=== PATIENT | male | born 1970 | race Caucasian/White ===

== ENCOUNTER 2018-04-28 08:26 | Emergency (ER) | payer MEDICAID ==
--- NOTE | 2018-04-28 08:42 | Emergency Department Record ---
History of Present Illness - General Chief Complaint: Suture removal Stated Complaint: SUTURE REMOVAL Time Seen by Provider: 04/28/18 08:28 Source: Patient Mode of arrival: Ambulatory Limitations: No limitations - History of Present Illness Initial Comments: 48 yo male presents for suture removal and wound check after an injury 10 days ago. No complaints since the injury. No fevers, redness or drainage. MD Complaint: Suture/staple removal, Wound re-check -: Days(s) (10) Initial Visit For: Laceration Returns Today for: Staple/stitch removal, Wound recheck Symptoms Since Prior Visit: No new symptoms Associated Symptoms: None Treatments Prior to Arrival: Other - Related Data Previous Rx's Medication Instructions Recorded Amoxicillin/Potassium Clav 1 tab PO BID #14 tab 04/18/18 [Augmentin 875-125 Tablet] Allergies Allergy/AdvReac Type Severity Reaction Status Date / Time oxycodone Allergy ALTERED Verified 04/18/18 17:32 MENTAL STATUS Review of Systems Constitutional: Denies: Chills, Fever Eyes: Denies: Eye discharge, Vision change ENT: Denies: Congestion, Throat pain Respiratory: Denies: Cough Cardiovascular: Denies: Chest pain Endocrine: Denies: Fatigue Gastrointestinal: Denies: Diarrhea, Nausea, Vomiting Genitourinary: Denies: Dysuria, Hematuria Musculoskeletal: Denies: Arthralgia, Myalgia Skin: Reports: Other. Denies: Bruising, Change in color Neurological: Denies: Headache Psychiatric: Denies: Anxiety Hematological/Lymphatic: Denies: Easy bleeding, Easy bruising Past Medical History - SOCIAL HISTORY Smoking Status: Current every day smoker Drug Use: None - RESPIRATORY Hx Respiratory Disorders: Yes Hx Bronchitis: Yes (2 weeks ago bronchitis-80% better) Hx Sleep Apnea: Yes (study done) Hx of CPAP: (dont have one) Comment:: has sinus drainage - CARDIOVASCULAR Hx Cardio Disorders: Yes Hx Hypertension: Yes (140/90 with meds) Hx Irregular Heartbeat: Yes (slight murmur) Comment:: painful right knee - NEURO Hx Neuro Disorders: No - GI Hx GI Disorders: Yes Hx Reflux: Yes Hx Hiatal Hernia: Yes Comment:: "ruptured diaphram" "part of my stomach above diaphram" - Hx Genitourinary Disorders: No - ENDOCRINE Hx Endocrine Disorders: No Hx Diabetes: No Hx Thyroid Disease: No - MUSCULOSKELETAL Hx Musculoskeletal Disorders: Yes Hx Arthritis: Yes (knees ,neck) Hx Osteoporosis: Yes - PSYCH Hx Psych Problems: No - HEMATOLOGY/ONCOLOGY Hx Hematology/Oncology Disorders: No Family Medical History Hx Cancer: Father, Grandparents *Cancer Comment: mat grandpa Hx Heart Disease: Father, Mother, Grandparents *Heart Comment: pat grandpa Hx HTN: Father, Grandparents Hx Resp Disorders: Father *Resp Comment: sleep apnea Hx Stroke: Mother Physical Exam - General General Appearance: Alert, Oriented x3, Cooperative, No acute distress Limitations: No limitations - Head Head exam: Other (healing scalp laceration without pus, redness or concerns) Head exam detail: Laceration - Eye Eye exam: Normal appearance. negative: Conjunctival injection - ENT ENT exam: negative: Normal exam Ear exam: negative: Normal external inspection Nasal Exam: negative: Normal inspection Mouth exam: negative: Normal external inspection - Neck Neck exam: Normal inspection - Extremities Extremities exam: Normal inspection - Neurological Neurological exam: Alert, Oriented X3 - Psychiatric Psychiatric exam: Normal affect, Normal mood - Skin Skin exam: Dry, Intact, Normal color, Warm Course - Reevaluation(s) Reevaluation #1: sutures removed without difficulty 04/28/18 08:44 Disposition Disposition: Discharge Clinical Impression: Visit for suture removal Disposition: Home, Self-Care Condition: (1) Good Instructions: Stitches Removal (ED) Additional Instructions: Return if you have any ongoing concerns about your healing of the laceration Forms: Patient Portal Access Time of Disposition: 08:42 Quality - Quality Measures Quality Measures: N/A - Blood Pressure Screening Does Patient Have Any of the Following: Active Dx of HTN Blood Pressure Classification: Pre-Hypertensive BP Reading Systolic Measurement: 135 Diastolic Measurement: 79 Screening for High Blood Pressure: Patient Exclusion, Hx of HTN [G9744]
== END 2018-04-28 08:50 | disposition home or self-care (01) ==
LOC: ER 08:26
DX: Z48.02 Encounter for removal of sutures (principal)

== ENCOUNTER 2019-02-01 11:30 | Emergency (ER) | payer MEDICAID ==
[2019-02-01] MEDS ORDERED: PROPARACAINE HCL OPTH 15ML BTL OPTH ONE (11:40)
[2019-02-01] MEDS ORDERED: IBUPROFEN 600 MG TABLET PO ONE (12:58)
--- NOTE | 2019-02-01 13:02 | Emergency Department Record ---
History of Present Illness - General Chief complaint: Eye Problem Stated complaint: LEFT EYE REDNESS Time Seen by Provider: 02/01/19 12:34 Source: Patient Mode of Arrival: Ambulatory Limitations: No limitations - History of Present Illness Initial comments: pt got sawdust in his eye a few days ago. it has contd to hurt and now has swelling ,redness and discharge. it feels similar to when he had a blocked tear duct. chief complaint: Eye pain, Eye redness, Foreign body Onset/Timin -: Days(s) Location: Left eye If Injury: None Eye Symptoms: Blurry vision, Decreased vision, Discharge, Foreign body sensation, Itching, Pain, Redness Severity: Mild Severity scale (1-10): 3 If Pain, Quality: Aching Consistency: Constant Associated Symptoms: None Treatments Prior to Arrival: None - Related Data Hx Tetanus Toxoid Vaccination: Yes Year of Tetanus Vaccination: 2013 Previous Rx's Medication Instructions Recorded Gentamicin Sulfate 1 drop AFFEYE Q6HR #1 ml 02/01/19 Ibuprofen [Motrin 600Mg] 600 mg PO Q6H #20 tablet 02/01/19 Allergies Allergy/AdvReac Type Severity Reaction Status Date / Time oxycodone Allergy ALTERED Verified 02/01/19 11:38 MENTAL STATUS Travel Screening - Travel/Exposure Within Last 30 Days Have you traveled within the last 30 days?: No Review of Systems Reviewed: No additional complaints except as noted below Constitutional: Reports: As per HPI. Denies: Chills, Fever, Malaise, Night sweats, Weakness, Weight change Eyes: Reports: As per HPI, Eye pain. Denies: Eye discharge, Photophobia, Vision change ENT: Reports: As per HPI. Denies: Congestion, Dental pain, Ear pain, Epistaxis, Hearing loss, Throat pain Respiratory: Reports: As per HPI. Denies: Cough, Dyspnea, Hemoptysis, Stridor, Wheezes Cardiovascular: Reports: As per HPI. Denies: Arrhythmia, Chest pain, Dyspnea on exertion, Edema, Murmurs, Orthopnea, Palpitations, Paroxysmal nocturnal dyspnea, Rheumatic Fever, Syncope Endocrine: Reports: As per HPI. Denies: Fatigue, Heat or cold intolerance, Polydipsia, Polyuria Gastrointestinal: Reports: As per HPI. Denies: Abdominal pain, Constipation, Diarrhea, Hematemesis, Hematochezia, Melena, Nausea, Vomiting Genitourinary: Reports: As per HPI. Denies: Dysuria, Frequency, Hematuria, Incontinence, Retention, Testicular pain, Testicular mass, Urgency Musculoskeletal: Reports: As per HPI. Denies: Arthralgia, Back pain, Gout, Joint swelling, Myalgia, Neck pain Skin: Reports: As per HPI. Denies: Bruising, Change in color, Change in hair/nails, Lesions, Pruritus, Rash Neurological: Reports: As per HPI. Denies: Abnormal gait, Confusion, Headache, Numbness, Paresthesias, Seizure, Tingling, Tremors, Vertigo, Weakness Psychiatric: Reports: As per HPI. Denies: Anxiety, Auditory hallucinations, Depression, Homicidal thoughts, Suicidal thoughts, Visual hallucinations Hematological/Lymphatic: Reports: As per HPI. Denies: Anemia, Blood Clots, Easy bleeding, Easy bruising, Swollen glands Past Medical History - SOCIAL HISTORY Smoking Status: Current every day smoker Alcohol Use: None Drug Use: None - RESPIRATORY Hx Respiratory Disorders: Yes Hx Bronchitis: Yes Hx Sleep Apnea: Yes - CARDIOVASCULAR Hx Cardio Disorders: Yes Hx Hypertension: Yes Hx Irregular Heartbeat: Yes (slight murmur) Comment:: painful right knee - NEURO Hx Neuro Disorders: No - GI Hx GI Disorders: Yes Hx Reflux: Yes Hx Hiatal Hernia: Yes Comment:: "ruptured diaphram" "part of my stomach above diaphram" - Hx Genitourinary Disorders: No - ENDOCRINE Hx Endocrine Disorders: No Hx Diabetes: No Hx Thyroid Disease: No - MUSCULOSKELETAL Hx Musculoskeletal Disorders: Yes Hx Arthritis: Yes (knees ,neck) Hx Osteoporosis: Yes - PSYCH Hx Psych Problems: No - HEMATOLOGY/ONCOLOGY Hx Hematology/Oncology Disorders: No Family Medical History Any Significant Family History?: Yes Hx Cancer: Father, Grandparents *Cancer Comment: mat grandpa Hx Heart Disease: Father, Mother, Grandparents *Heart Comment: pat grandpa Hx HTN: Father, Grandparents Hx Resp Disorders: Father *Resp Comment: sleep apnea Hx Stroke: Mother Physical Exam - General General Appearance: Alert, Oriented x3, Cooperative, Mild distress - Head Head exam: Normal inspection - Eye Eye exam: Normal appearance, PERRL, Conjunctival injection, EOMI, Periorbital swelling, Other (upper lid is erythematous and has swelling) Pupils: Normal accommodation, Other (no flourscein uptake, lids everted) - ENT ENT exam: Normal exam, Mucous membranes moist, Normal external ear exam, Normal orophraynx Ear exam: Normal external inspection. negative: External canal tenderness Nasal Exam: Normal inspection. negative: Discharge, Sinus tenderness Mouth exam: Normal external inspection, Tongue normal Teeth exam: Normal inspection. negative: Dental caries Throat exam: Normal inspection. negative: Tonsillar erythema, Tonsillar exudate - Neck Neck exam: Normal inspection, Full ROM. negative: Tenderness - Respiratory Respiratory exam: Normal lung sounds bilaterally. negative: Respiratory distress - Cardiovascular Cardiovascular Exam: Regular rate, Normal rhythm, Normal heart sounds - GI/Abdominal GI/Abdominal exam: Soft, Normal bowel sounds. negative: Tenderness - Rectal Rectal exam: Deferred - exam: Deferred - Extremities Extremities exam: Normal inspection, Full ROM, Normal capillary refill. negative: Tenderness - Back Back exam: Reports: Normal inspection, Full ROM. Denies: Muscle spasm, Rash noted, Tenderness - Neurological Neurological exam: Alert, Normal gait, Oriented X3, Reflexes normal - Psychiatric Psychiatric exam: Normal affect, Normal mood - Skin Skin exam: Dry, Intact, Normal color, Warm Course Vital Signs 02/01/19 11:34 Temperature 98.0 F Pulse Rate 79 Respiratory 20 Rate Blood Pressure 184/119 Pulse Ox 99 Disposition Disposition: Discharge Clinical Impression: Blocked tear duct Hordeolum Qualifiers: Hordeolum type: internum Laterality: left Eyelid: upper Qualified Code(s): H00.024 - Hordeolum internum left upper eyelid Disposition: Home, Self-Care Condition: (1) Good Instructions: Blocked Tear Duct (ED), Stye (ED) Additional Instructions: follow up with opthamologist this week. return sooner if worse. continue warm soaks Prescriptions: Gentamicin Sulfate 1 drop AFFEYE Q6HR #1 ml Ibuprofen [Motrin 600Mg] 600 mg PO Q6H #20 tablet Quality - Quality Measures Quality Measures: N/A - Blood Pressure Screening Does Patient Have Any of the Following: Active Dx of HTN Blood Pressure Classification: Hypertensive Reading Systolic Measurement: 184 Diastolic Measurement: 119 Screening for High Blood Pressure: Patient Exclusion, Hx of HTN [G9744]
== END 2019-02-01 13:19 | disposition home or self-care (01) ==
LOC: ER 11:30
DX: H00.024 Hordeolum internum left upper eyelid (principal); H04.552 Acquired stenosis of left nasolacrimal duct; I10 Essential (primary) hypertension; F17.210 Nicotine dependence, cigarettes, uncomplicated
CPT/HCPCS: 99282

== ENCOUNTER 2019-05-24 22:09 | Emergency (ER) | payer MEDICAID ==
--- NOTE | 2019-05-24 22:33 | Emergency Department Record ---
History of Present Illness - General Chief Complaint: Laceration(s) Stated Complaint: LAC,RT THUMB Time Seen by Provider: 05/24/19 22:16 Source: Patient Mode of Arrival: Ambulatory Limitations: No limitations - History of Present Illness Initial Commments: 49 yo male presents to ED for evaluation following a laceration to the right thumb with a new hatchet. Patient was handing the weapon to his son who was going to gut a deer with the new knife when the laceration occurred. Patient reports applying bandage to the thumb prior to arrival, but was unable to get his bleeding to stop. Patient denies use of blood thinner medications, reports tetanus is UTD as well. Patient denies loss of flexion/extension of the thumb on examination. Onset/Timin -: Hour(s) Extremity Location: Right: Hand Place: Home Context: Accidental Associated Symptoms: None Treatments Prior to Arrival: Bandage - [place] Coma Scale Eye Response: (4) Open spontaneously Motor Response: (6) Obeys commands Verbal Response: (5) Oriented [place] Total: 15 - Related Data Hx Tetanus Toxoid Vaccination: Yes Year of Tetanus Vaccination: 2013 Previous Rx's Medication Instructions Recorded Gentamicin Sulfate 1 drop AFFEYE Q6HR #1 ml 02/01/19 Ibuprofen [Motrin 600Mg] 600 mg PO Q6H #20 tablet 02/01/19 Cephalexin [Keflex] 500 mg PO QID #27 cap 05/24/19 Allergies Allergy/AdvReac Type Severity Reaction Status Date / Time oxycodone Allergy ALTERED Verified 02/01/19 11:38 MENTAL STATUS Review of Systems Constitutional: Denies: Chills, Fever, Malaise, Night sweats Eyes: Denies: Eye discharge, Eye pain ENT: Denies: Congestion, Ear pain, Epistaxis Respiratory: Denies: Cough, Dyspnea Cardiovascular: Denies: Chest pain, Dyspnea on exertion Endocrine: Denies: Fatigue, Heat or cold intolerance Gastrointestinal: Denies: Abdominal pain, Nausea, Vomiting Genitourinary: Denies: Incontinence, Retention Musculoskeletal: Denies: Arthralgia, Back pain, Gout, Joint swelling Skin: Reports: Other (Thumb laceration). Denies: Bruising, Change in color, Change in hair/nails Neurological: Denies: Abnormal gait, Confusion, Headache, Seizure Psychiatric: Denies: Anxiety Hematological/Lymphatic: Denies: Anemia, Blood Clots, Easy bleeding, Easy bruising Past Medical History - SOCIAL HISTORY Smoking Status: Current every day smoker Drug Use: None - RESPIRATORY Hx Respiratory Disorders: Yes Hx Bronchitis: Yes Hx Sleep Apnea: Yes - CARDIOVASCULAR Hx Cardio Disorders: Yes Hx Hypertension: Yes Hx Irregular Heartbeat: Yes (slight murmur) Comment:: painful right knee - NEURO Hx Neuro Disorders: No - GI Hx GI Disorders: Yes Hx Reflux: Yes Hx Hiatal Hernia: Yes Comment:: "ruptured diaphram" "part of my stomach above diaphram" - Hx Genitourinary Disorders: No - ENDOCRINE Hx Endocrine Disorders: No Hx Diabetes: No Hx Thyroid Disease: No - MUSCULOSKELETAL Hx Musculoskeletal Disorders: Yes Hx Arthritis: Yes (knees ,neck) Hx Osteoporosis: Yes - PSYCH Hx Psych Problems: No - HEMATOLOGY/ONCOLOGY Hx Hematology/Oncology Disorders: No Family Medical History Hx Cancer: Father, Grandparents *Cancer Comment: mat grandpa Hx Heart Disease: Father, Mother, Grandparents *Heart Comment: pat grandpa Hx HTN: Father, Grandparents Hx Resp Disorders: Father *Resp Comment: sleep apnea Hx Stroke: Mother Physical Exam - General General Appearance: Alert, Oriented x3, Cooperative, Mild distress Limitations: No limitations - Head Head exam: Atraumatic, Normocephalic, Normal inspection Head exam detail: negative: Abrasion, Contusion, Humphries's sign, General tenderness, Hematoma, Laceration - Eye Eye exam: Normal appearance. negative: Conjunctival injection, Periorbital swelling, Periorbital tenderness, Scleral icterus - ENT Ear exam: negative: Auricular hematoma, Auricular trauma Nasal Exam: negative: Active bleeding, Discharge, Dried blood, Foreign body Mouth exam: negative: Drooling, Laceration, Muffled voice, Tongue elevation - Neck Neck exam: Normal inspection. negative: Meningismus, Tenderness - Respiratory Respiratory exam: Normal lung sounds bilaterally. negative: Rales, Respiratory distress, Rhonchi, Stridor - Cardiovascular Cardiovascular Exam: Regular rate, Normal rhythm, Normal heart sounds - GI/Abdominal GI/Abdominal exam: Soft. negative: Rebound, Rigid, Tenderness - Rectal Rectal exam: Deferred - exam: Deferred - Extremities Extremities exam: Tenderness, Other (2.0 cm laceration to the palmar aspect of the right thumb overlying the DIP on examination, bleeding is controlled.). negative: Calf tenderness, Pedal edema - Back Back exam: Denies: CVA tenderness (R), CVA tenderness (L) - Neurological Neurological exam: Alert, Normal gait, Oriented X3 - Psychiatric Psychiatric exam: Normal affect, Normal mood - Skin Skin exam: Normal color. negative: Abrasion Type of lesion: negative: abrasion Course Vital Signs 05/24/19 22:18 Temperature 97.6 F Pulse Rate [ 91 H Pulse Ox Probe] Respiratory 20 Rate Blood Pressure 171/117 [Left Arm] Pulse Ox 96 - Reevaluation(s) Reevaluation #1: 05/24/19 22:47 Procedure Note: 2.0 cm laceration to the palmar aspect of the right thumb, bleeding controlled. Wound was cleaned and prepped in sterile fashion, no residual FB identified on examination. Wound was anesthetized with 1.0 mL of 1% Lidocaine without epinephrinewith good anesthesia, and the laceration was repaired with 4-0 Prolene (#3) sutures in interrupted fashion. Patient tolerated the procedure well without complications. Patient's tetanus was UTD. Patient was also started on Keflex prior to discharge given the location of the patient's laceration. Patient and his mother were given wound care instructions and signs/symptoms to return to the ED for as well including: increased swelling, pain, redness, or discharge from the wound. Patient was counseled to return to the ED for suture removal in 10 days. Disposition Disposition: Discharge Clinical Impression: Laceration of thumb, right Qualifiers: Encounter type: initial encounter Damage to nail status: without damage Foreign body presence: without foreign body Qualified Code(s): S61.011A - Laceration without foreign body of right thumb without damage to nail, initial encounter Disposition: Home, Self-Care Condition: (2) Stable Instructions: Care For Your Stitches (ED) Additional Instructions: Return to ED if your symptoms worsen or if you have any concerns. Keflex as directed. Follow-up with your family doctor in 3-5 days as directed. Sutures out in 10 days. Prescriptions: Cephalexin [Keflex] 500 mg PO QID #27 cap Forms: Patient Portal Access Time of Disposition: 22:32 Quality - Quality Measures Quality Measures: N/A - Blood Pressure Screening Does Patient Have Any of the Following: No Blood Pressure Classification: Hypertensive Reading Systolic Measurement: 171 Diastolic Measurement: 117 Screening for High Blood Pressure: < First Hypertensive BP, F/U Documented > [G8950] First Hypertensive Follow-up Interventions: Referral to alternative/primary care provider.
[2019-05-24] MEDS: CEPHALEXIN 500 MG CAPSULE PO STA (22:45)
== END 2019-05-24 23:03 | disposition home or self-care (01) ==
LOC: ER 22:09
DX: S61.011A Laceration without foreign body of right thumb without damage to nail, initial encounter (principal); W27.8XXA Contact with other nonpowered hand tool, initial encounter; Y92.009 Unspecified place in unspecified non-institutional (private) residence as the place of occurrence of the external cause; I10 Essential (primary) hypertension; F17.210 Nicotine dependence, cigarettes, uncomplicated
CPT/HCPCS: 12001; 99283

== ENCOUNTER 2019-07-22 11:32 | Emergency (ER) | payer MEDICAID ==
[2019-07-22] MEDS ORDERED: DEXAMETHASONE SOD PHOSPHATE 10MG/ML VIAL PO ONE (11:53)
--- NOTE | 2019-07-22 11:57 | Emergency Department Record ---
History of Present Illness - General Chief complaint: Flu Like Symptoms Stated complaint: COUGHING/FEVER/CHILLS Time Seen by Provider: 07/22/19 11:53 Source: Patient Mode of Arrival: Ambulatory Limitations: No limitations - History of Present Illness Initial comments: 49 yo male presents with cough, congestion, sinus pressure, and sore throat. The onset was about 5 days ago. No fever. The symptoms started in the nose and have progressed to the chest. He is a minimal casual smoker. No underlying lung disease history. No vomiting, diarrhea, or rash. The discharge is clear at this point. Onset/Timin -: Days(s) Location: Generalized Severity: Moderate Quality: Aching Consistency: Constant Improves with: None Worsens with: None Associated Symptoms: Other - [place] Coma Scale Eye Response: (4) Open spontaneously Motor Response: (6) Obeys commands Verbal Response: (5) Oriented [place] Total: 15 - Related Data Home Medications Medication Instructions Recorded Confirmed Last Taken Atorvastatin Calcium 20 mg PO DAILY 07/22/19 07/22/19 Unknown Previous Rx's Medication Instructions Recorded Benzonatate [Tessalon] 1 cap PO Q8H PRN #16 cap 07/22/19 Allergies Allergy/AdvReac Type Severity Reaction Status Date / Time oxycodone Allergy ALTERED Verified 02/01/19 11:38 MENTAL STATUS Travel Screening - Travel/Exposure Within Last 30 Days Have you traveled within the last 30 days?: No Review of Systems Constitutional: Denies: Chills, Fever, Malaise, Weakness Eyes: Denies: Eye discharge, Vision change ENT: Reports: Congestion, Throat pain. Denies: Dental pain, Ear pain Respiratory: Reports: Cough. Denies: Dyspnea, Hemoptysis, Wheezes Cardiovascular: Denies: Chest pain, Palpitations, Syncope Endocrine: Denies: Fatigue, Polydipsia, Polyuria Gastrointestinal: Denies: Abdominal pain, Diarrhea, Nausea, Vomiting Genitourinary: Denies: Dysuria, Frequency, Hematuria Musculoskeletal: Denies: Arthralgia, Back pain, Myalgia Skin: Denies: Bruising, Change in color, Rash Neurological: Denies: Headache Psychiatric: Denies: Anxiety Hematological/Lymphatic: Denies: Easy bleeding, Easy bruising Past Medical History - SOCIAL HISTORY Smoking Status: Current every day smoker - RESPIRATORY Hx Respiratory Disorders: Yes Hx Bronchitis: Yes Hx Sleep Apnea: Yes - CARDIOVASCULAR Hx Cardio Disorders: Yes Hx Hypertension: Yes Hx Irregular Heartbeat: Yes (slight murmur) Comment:: painful right knee - NEURO Hx Neuro Disorders: No - GI Hx GI Disorders: Yes Hx Reflux: Yes Hx Hiatal Hernia: Yes Comment:: "ruptured diaphram" "part of my stomach above diaphram" - Hx Genitourinary Disorders: No - ENDOCRINE Hx Endocrine Disorders: No Hx Diabetes: No Hx Thyroid Disease: No - MUSCULOSKELETAL Hx Musculoskeletal Disorders: Yes Hx Arthritis: Yes (knees ,neck) Hx Osteoporosis: Yes - PSYCH Hx Psych Problems: No - HEMATOLOGY/ONCOLOGY Hx Hematology/Oncology Disorders: No Family Medical History Any Significant Family History?: Yes Hx Cancer: Father, Grandparents *Cancer Comment: mat grandpa Hx Heart Disease: Father, Mother, Grandparents *Heart Comment: pat grandpa Hx HTN: Father, Grandparents Hx Resp Disorders: Father *Resp Comment: sleep apnea Hx Stroke: Mother Physical Exam - General General Appearance: Alert, Oriented x3, Cooperative, No acute distress Limitations: No limitations - Head Head exam: Atraumatic, Normal inspection - Eye Eye exam: Normal appearance, PERRL. negative: Conjunctival injection, Scleral icterus - ENT ENT exam: Normal exam, Mucous membranes moist, Normal orophraynx, TM's normal bilaterally. negative: Mucous membranes dry Ear exam: Normal external inspection Nasal Exam: Discharge. negative: Normal inspection Mouth exam: Normal external inspection Teeth exam: Normal inspection Throat exam: Tonsillar erythema. negative: Tonsillomegaly, Tonsillar exudate, R peritonsillar mass, L peritonsillar mass - Neck Neck exam: Normal inspection, Full ROM. negative: Lymphadenopathy, Tenderness - Respiratory Respiratory exam: Normal lung sounds bilaterally. negative: Accessory muscle use, Decreased breath sounds, Prolonged expiratory, Respiratory distress, Rhonchi, Stridor, Wheezes - Cardiovascular Cardiovascular Exam: Regular rate, Normal rhythm, Normal heart sounds - Rectal Rectal exam: Deferred - exam: Deferred - Extremities Extremities exam: Normal inspection - Back Back exam: Denies: CVA tenderness (R), CVA tenderness (L) - Neurological Neurological exam: Alert, Oriented X3 - Psychiatric Psychiatric exam: Normal affect, Normal mood - Skin Skin exam: Dry, Intact, Normal color, Warm Course Vital Signs 07/22/19 11:37 Temperature 98.7 F Pulse Rate 64 Respiratory 20 Rate Blood Pressure 158/93 Pulse Ox 98 - Reevaluation(s) Reevaluation #1: The vitals were reviewed No fever or hypoxia 07/22/19 11:56 07/22/19 12:15 Influenza is negative Disposition Disposition: Discharge Clinical Impression: Viral upper respiratory illness Disposition: Home, Self-Care Condition: (1) Good Instructions: Viral Syndrome (ED) Additional Instructions: Review this ER visit and the tests performed with your family doctor Call your doctor for the next available follow up appointment Return to the ER for a recheck if worse, any new concerns or questions Prescriptions: Benzonatate [Tessalon] 1 cap PO Q8H PRN #16 cap PRN Reason: Cough Forms: Patient Portal Access Time of Disposition: 12:16 Quality - Quality Measures Quality Measures: N/A - Blood Pressure Screening Does Patient Have Any of the Following: No Blood Pressure Classification: Hypertensive Reading Systolic Measurement: 158 Diastolic Measurement: 93 Screening for High Blood Pressure: < Pre-Hypertensive BP, F/U Documented > [G8950] Pre-Hypertensive Follow-up Interventions: Referral to alternative/primary care provider.
[2019-07-22 12:14] LABS: INFLUENZA A NEGATIVE (NEGATIVE); INFLUENZA B NEGATIVE (NEGATIVE)
== END 2019-07-22 12:28 | disposition home or self-care (01) ==
LOC: ER 11:32
DX: J06.9 Acute upper respiratory infection, unspecified (principal); R05 Cough; F17.210 Nicotine dependence, cigarettes, uncomplicated; I10 Essential (primary) hypertension
CPT/HCPCS: 87400; 99283